=== PATIENT | male | born 1950 | race Caucasian/White ===

== ENCOUNTER → 2017-03-31 | Outpatient (CLI) | payer OTHER, BC ==
[~2017-03-31] MED LIST: CEFU500T16 PO; IBUP-1050 PO
== END | disposition home or self-care (01) ==
LOC: C.PATHSPEC 17:27
PROVIDERS: ATTEND Urology
DX: N41.1 Chronic prostatitis (principal); R97.20 Elevated prostate specific antigen [PSA]

== ENCOUNTER 2017-07-26 08:29 | Emergency (ER) | payer OTHER, BC ==
[~2017-07-26] VITALS: Ht 195.6 cm; Wt 93.0 kg
[2017-07-26 08:35] VITALS: BP 128/85; PULSE 73; TEMP 36.8; O2SAT 97; Ht 195.6 cm; Wt 93.0 kg
[2017-07-26] MEDS ORDERED: PROPARACAINE HCL 0.5% OP SOLN 15 ML BTL OP STA (08:41)
--- NOTE | 2017-07-26 08:55 | EMERGENCY ROOM VISIT NOTE ---
ED Visit Note First contact with patient: 08:37 I have seen and examined this patient with Herman Ratliff and generally agree with the treatment plan as discussed. Current/Historical Medications Scheduled Cefuroxime Axetil (Ceftin), 500 MG PO BID Scheduled PRN Ibuprofen (Advil), 200 MG PO Q6HR PRN Allergies Coded Allergies: No Known Allergies (Unverified , 06/23/12) Vital Signs Date Time Temp Pulse Resp B/P (MAP) Pulse Ox O2 Delivery O2 Flow Rate FiO2 07/26/17 08:35 36.8 73 16 128/85 97 Departure Information Referrals No Doctor, Assigned (PCP) Patient Instructions My [facility]
[2017-07-26] MEDS ORDERED: FINA5TAB PO (09:01)
--- NOTE | 2017-07-26 09:01 | EMERGENCY ROOM VISIT NOTE ---
History First contact with patient: 08:37 Chief Complaint: EYE ASSESSMENT Stated Complaint: FOREIGN BODY IN EYE History of Present Illness The patient is a 66 year old male who presents to the Emergency Room with complaints of persistent left eye discomfort. The patient believes that he got a piece of burning ember in his eye yesterday while burning brush. The patient reports that the pain is not as bad when he is not blinking or moving his eye. He denies any bloody drainage or other drainage from the eye. Tetanus immunization is up-to-date, and the patient rates his discomfort a 2 out of 10. Review of Systems 10 system review was performed and was negative except for pertinent positives and negatives as indicated in history of present illness Past Medical/Surgical History Medical Problems: (1) Chronic Prostatitis (2) Esophageal Reflux (3) Hyperlipidemia Nec/Nos Family History FH: prostate cancer Social History Smoking Status: Never Smoker Alcohol Use: occasionally Marital Status: Occupation Status: retired Current/Historical Medications Scheduled Cefuroxime Axetil (Ceftin), 500 MG PO BID Scheduled PRN Ibuprofen (Advil), 200 MG PO Q6HR PRN Physical Exam Vital Signs Date Time Temp Pulse Resp B/P (MAP) Pulse Ox O2 Delivery O2 Flow Rate FiO2 07/26/17 08:35 36.8 73 16 128/85 97 Right Eye Acuity: 20/20 -1 Left Eye Acuity: 20/25 -1 Physical Exam CONSTITUTIONAL: Healthy and well nourished. Patient does not appear in any acute distress. HEENT: Normocephalic, atraumatic. Pupils equal, round and reactive. No conjunctival injection or drainage from the left eye. EOMs intact without discomfort. NECK: Full active range of motion without discomfort. INTEGUMENTARY: No rash or other significant dermatologic conditions noted. NEUROLOGIC: No focal neurologic deficits noted. Medical Decision & Procedures Procedure Slit-lamp and fluorescein exam were performed. 2 drops of Alcaine were instilled into the eye with complete relief of symptoms. Exam does not show any mucopurulent or bloody drainage. Negative hyphema. Fluorescein exam shows a shallow corneal abrasion at 11:00. Eversion of the upper eyelid also shows a very attained piece of organic material that was successfully removed using a sterile swab. The patient tolerated the procedure well. ED Course Patient history and physical exam were performed. Nurse's notes were reviewed. Vital signs were reviewed and were normal. Slit-lamp insurance and exam showed a foreign body under the upper eyelid, along with a superficial superior corneal abrasion. The patient was encouraged to intermittently apply a cool compress to the eye. Ibuprofen or Tylenol if needed for additional pain relief. The patient reports that he does have a history of chronic problems with his eyes, and usually uses Tobradex when he develops corneal ulcerations. At this point, I suggested that he try to refrain from using this medication, and call his materials planner if his symptoms are not improving within the next 36-48 hours. The patient was happy with plan of care, and denied any pain at the time of discharge. Medical Decision Medication Reconcilliation Current Medication List: was personally reviewed by me Blood Pressure Screening Patient's blood pressure: Normal blood pressure Impression Primary Impression: Foreign body in eye Departure Information Dispostion Home / Self-Care Forms HOME CARE DOCUMENTATION FORM, IMPORTANT VISIT INFORMATION Patient Instructions My [facility] Additional Instructions Intermittently apply a cool compress as needed. Ibuprofen or Tylenol as needed for additional pain relief. Follow up with your materials planner if symptoms are not improving within the next 48 hours. Problem Qualifiers Primary Impression: Foreign body in eye Encounter type: initial encounter Laterality: left Qualified Codes: T15.92XA - Foreign body on external eye, part unspecified, left eye, initial encounter
== END 2017-07-26 09:00 | disposition home or self-care (01) ==
LOC: C.EDB 08:31 → C.EDA 09:00
DX: T15.92XA Foreign body on external eye, part unspecified, left eye, initial encounter (principal); X58.XXXA Exposure to other specified factors, initial encounter; E78.5 Hyperlipidemia, unspecified

== ENCOUNTER 2017-08-08 03:05 | Emergency (ER) | payer OTHER, BC ==
[~2017-08-08] VITALS: Ht 195.6 cm; Wt 91.3 kg
[~2017-08-08 03:05] MED LIST changes: -CEFU500T16 PO; +FINA5TAB PO; -IBUP-1050 PO
[2017-08-08 03:10] VITALS: TEMP 36.8; Ht 195.6 cm; Wt 91.3 kg
[2017-08-08] MEDS ORDERED: CEPH500C2 PO (03:27)
[2017-08-08] MEDS ORDERED: RANITIDINE HCL 150 MG TAB PO ONE (03:30)
[2017-08-08] MEDS ORDERED: DEXAMETHASONE **PF** INJ 10 MG/ML VIAL PO ONE (03:30)
[2017-08-08] MEDS ORDERED: CEPHALEXIN 500MG HOME PACK 1 EA BTL PO ONE (03:30)
--- NOTE | 2017-08-08 03:35 | EMERGENCY ROOM VISIT NOTE ---
History First contact with patient: 03:13 Chief Complaint: HAND PAIN/INJURY Stated Complaint: SWOLLEN LEFT HAND History of Present Illness The patient is a 66 year old male who presents to the Emergency Room with complaints of left hand pain and swelling with itchiness for the past day who thinks he was bit by something while in the [place]. Tetanus is current. Patient states it is itchy red and swollen to the dorsal aspect of the hand. No lymphangitis. Patient denies fevers, chest pain, dyspnea, numbness, tingling , facial swelling, throat tightness, abdominal pain. Review of Systems A 6 system review of systems was completed with positives and pertinent negatives listed in the HPI. Past Medical/Surgical History Medical Problems: (1) Chronic Prostatitis (2) Esophageal Reflux (3) Hyperlipidemia Nec/Nos Family History FH: prostate cancer Social History Smoking Status: Never Smoker Alcohol Use: occasionally Drug Use: none Marital Status: Housing Status: lives with family Occupation Status: retired Current/Historical Medications Scheduled Cephalexin Monohydrate (Keflex), 500 MG PO QID Finasteride (Proscar), 5 MG PO DAILY Physical Exam Vital Signs Date Time Temp Pulse Resp B/P (MAP) Pulse Ox O2 Delivery O2 Flow Rate FiO2 18 03:10 36.8 68 20 122/78 93 Room Air Physical Exam VITALS: Vitals are noted on the nurse's note and reviewed by myself. Vital signs stable. GENERAL: Pleasant male, in no acute distress, nondiaphoretic, well-developed well-nourished. SKIN: Capillary reflex less than 2 seconds. Left hand with bite belen presents to the dorsal aspect with surrounding erythema without lymphangitis. HEENT: Normocephalic. PERRLA. MUSCULOSKELETAL: No gross musculoskeletal defects. Left hand with bite belen presents to the dorsal aspect with surrounding erythema without lymphangitis. Left hand full range of motion without tenderness. Sensation is intact. NEURO: Patient was alert and oriented to person place and time. Normal sensation to light and sharp touch. No focal neurological deficits. Medical Decision & Procedures ED Course Prior records reviewed and summarized as above. Triage Nursing notes reviewed. The patient's history was concerning for swelling and redness of the skin. Differential diagnosis: Etiologies such as infected insect bite, allergic reaction to insect bite, cellulitis, abscess, MRSA infection, DVT, necrotizing fasciitis, dermatitis, drug eruption, as well as others were entertained.. Physical examination: The physical examination was consistent with infected insect bite ER treatment provided: Keflex, Benadryl, Zantac, Decadron On reassessment the patient felt better. Diagnostics interpreted by me: Deferred This appears to be Insert bite with minimal surrounding erythema that could be a localized allergic reaction versus early cellulitis..patient was started on antibiotics. He was advised to take Benadryl and Zantac also. He had no lymphangitis. He is afebrile nontoxic. He was neurovascularly and neurologically intact. He was advised to follow-up with the family care and a few days or here in the ER sooner for spreading of redness, fevers, vomiting, worsening signs or symptoms or as needed. By the evaluation outlined above emergent etiologies such as abscess, necrotizing fasciitis, DVT, as well as others were deemed relatively unlikely. The pt informed about the findings as listed above. All questions were answered and pleased with the treatment. Return instructions were outlined and the patient was discharged in stable condition. Outpatient prescription management: Keflex Referral: The patient was referred back to primary care physician for follow-up in 2 to 3 days for a recheck of the current condition. The chart was completed utilizing [employer] Speech voice recognition software. Grammatical errors, random word insertions, pronoun errors, and incomplete sentences are an occassional consequence of this system due to software limitations, ambient noise, and hardware issues. Any formal questions or concerns about the content, text, or information contained within the body of this dictation should be directly addressed to the physician clinical medical assistant for clarification. Medical Decision As above Medication Reconcilliation Current Medication List: was personally reviewed by me Blood Pressure Screening Patient's blood pressure: Normal blood pressure Impression Primary Impression: Infected bite wound of hand Departure Information Dispostion Home / Self-Care Condition GOOD Prescriptions Cephalexin Monohydrate (KEFLEX) 500 Mg Cap 500 MG PO QID for 9 Days, #36 CAP Prov: Verena Rico .ROBERT 08/08/17 Forms HOME CARE DOCUMENTATION FORM, IMPORTANT VISIT INFORMATION Patient Instructions My [facility] Additional Instructions DO NOT drive, drink alcohol, operate machinery, or perform dangerous activities today. You were given medications in the ER that can affect your ability to safely function or operate a vehicle. Diphenhydramine(Benadryl) 25mg: use 25 to 50 mg every six hours for swelling, itching, or hives. This medication is sedating and will cause drowsiness. Avoid alcohol, operating machinery or dangerous equipment, working on ladders or roofs, DRIVING, or situations where being under the influence may be dangerous. Zantac 75: Take two pills twice a day along with Benadryl as needed for swelling , itching, or hives. Most people know this for its affect on the stomach, but it also acts similar to, but less potent than Benadryl for allergic reactions. Both the Benadryl and the Zantac are available [id number]. Cephalexin(Keflex) 500mg: Take one pill four times daily for 10 days for your skin infection. All antibiotics can cause diarrhea. If this occurs and you feel worse or it does not resolve in 1-2 days follow up with your doctor or return to the Emergency Department as this could be signs of serious underlying problems. Any medication can cause an allergic reaction, stop the pills immediately and return to the ER for rash, hives, breathing difficulties, or swelling. Ibuprofen(Motrin, Advil) may be used for fever or pain. Use 600mg every six hours as needed. Take with food. Avoid using more than 2400mg in a 24 hour period. Do not use 2400mg per day for more than three consecutive days without physician direction. Prolonged inappropriate use can lead to stomach upset or ulcers. (AND/OR) Acetaminophen(Tylenol) may be used for fever or pain. Use 1000mg every six hours as needed. Avoid using more than 3000mg in a 24 hour period. Rest and drink plenty of fluids. Continue current medications. Return to the ER for severe pain, persistent fevers, spreading redness, or any worsening of your condition. Follow up with your primary physician within 2-3 days for a recheck of the current condition. Problem Qualifiers Primary Impression: Infected bite wound of hand Encounter type: initial encounter Laterality: left Qualified Codes: S61.452A - Open bite of left hand, initial encounter; L08.9 - Local infection of the skin and subcutaneous tissue, unspecified
[2017-08-08 03:47] VITALS: BP 104/72; PULSE 57; O2SAT 98
--- NOTE | 2017-08-08 06:18 | EMERGENCY ROOM VISIT NOTE ---
ED Visit Note First contact with patient: 03:13 I have personally evaluated and examined this patient. I agree with assessment and plan of Sanna Rico PA-C.
== END 2017-08-08 03:48 | disposition home or self-care (01) ==
LOC: C.EDB 03:07 → C.EDA 03:48
DX: S61.452A Open bite of left hand, initial encounter (principal); L08.9 Local infection of the skin and subcutaneous tissue, unspecified; W57.XXXA Bitten or stung by nonvenomous insect and other nonvenomous arthropods, initial encounter; N41.1 Chronic prostatitis; K21.9 Gastro-esophageal reflux disease without esophagitis; E78.5 Hyperlipidemia, unspecified